=== PATIENT | female | born 1990 | race Caucasian/White ===

== ENCOUNTER → 2016-06-02 | Outpatient (CLI) | payer BC, OTHER ==
--- NOTE | 2016-06-03 07:31 | USB ---
Reason for exam: clinical finding. Indicated problem(s): lump or thickening in the left breast. Physical Findings: Nurse Summary: BB on area of concern (nurse kp). US Breast LT Left breast ultrasound including all four quadrants, the retroareolar region and axilla demonstrates no cystic or solid lesion seen. These results were verbally communicated with the patient and result sheet given to the patient on 06/02/16. ASSESSMENT: Negative, BI-RAD 1 RECOMMENDATION: Clinical management of both breasts. Manage patient on a clinical basis.
== END | disposition home or self-care (01) ==
LOC: RADUSWWP 09:03
PROVIDERS: ATTEND Obstetrics & Gynecology
DX: N63 Unspecified lump in breast (principal)

== ENCOUNTER 2016-07-30 19:04 | Emergency (ER) | payer BC, OTHER ==
[2016-07-30 19:54] VITALS: BP 149/84; PULSE 85; RESP 18; TEMP 97.8
--- NOTE | 2016-07-30 20:22 | ED ---
ENT HPI - General Chief complaint: Dental/Oral Stated complaint: tooth pain Time Seen by Provider: 07/30/16 19:49 Source: patient, RN notes reviewed Mode of arrival: ambulatory Limitations: no limitations - History of Present Illness Initial comments: Patient is 26-year-old female she complaint of dental pain after a dental extraction earlier today. Patient reports that her she saw the dental clinic and they removed tooth #5. The states that it took multiple attempts to remove the tooth and had abraded tooth in half. Patient reports that she's had no dental pain such as this before. She is currently taking amoxicillin for an ear infection. Patient denies any fever or chills or unable to open and close the jaw. She states that they prescribed her Motrin for pain however it is not helping at this time. She states that she does have some mild bleeding from where they pulled the tooth earlier today.Patient denies any recent fever, chills, shortness of breath, chest pain, back pain, abdominal pain, nausea vomiting, numbness or tingling, dysuria or hematuria, constipation or diarrhea, headaches or visual changes, or any other current symptoms - Related Data Home Medications Medication Instructions Recorded Confirmed Amoxicillin 500 mg PO Q8H 07/30/16 07/30/16 Ibuprofen [Motrin] 600 mg PO Q6HR PRN 07/30/16 07/30/16 Previous Rx's Medication Instructions Recorded Acetaminophen-Codeine 300-30mg 1 tab PO Q4H PRN #15 tablet 07/30/16 [Tylenol #3] Allergies Allergy/AdvReac Type Severity Reaction Status Date / Time No Known Allergies Allergy Verified 10/23/14 08:09 Review of Systems ROS Statement: Those systems with pertinent positive or pertinent negative responses have been documented in the HPI. ROS Other: All systems not noted in ROS Statement are negative. Past Medical History Past Medical History: No Reported History History of Any Multi-Drug Resistant Organisms: None Reported Past Surgical History: Section Additional Past Surgical History / Comment(s): PLASTIC SURGERY FOR DOG BITE AGE 3; WISDOM TEETH REMOVED AGE 21 Past Anesthesia/Blood Transfusion Reactions: No Reported Reaction Past Psychological History: Anxiety Smoking Status: Light tobacco smoker Past Alcohol Use History: Rare Past Drug Use History: Cocaine, Marijuana Additional Drug Use History / Comment(s): LAST MARIJUANA 6 MOS AGO; COCAINE 4 YEARS AGO General Exam - General Exam Comments Initial Comments: Pleasant 26-year-old female. No acute distress. Limitations: no limitations General appearance: alert, in no apparent distress Head exam: Present: atraumatic, normocephalic, normal inspection Eye exam: Present: normal appearance, PERRL, EOMI. Absent: scleral icterus, conjunctival injection, periorbital swelling ENT exam: Present: normal exam, mucous membranes moist. Absent: normal oropharynx (Evidence of dental extraction of tooth #5. No evidence of erythema or dental abscess.) Neck exam: Present: normal inspection. Absent: tenderness, meningismus, lymphadenopathy Respiratory exam: Present: normal lung sounds bilaterally. Absent: respiratory distress, wheezes, rales, rhonchi, stridor Cardiovascular Exam: Present: regular rate, normal rhythm, normal heart sounds. Absent: systolic murmur, diastolic murmur, rubs, gallop, clicks GI/Abdominal exam: Present: soft, normal bowel sounds. Absent: distended, tenderness, guarding, rebound, rigid Extremities exam: Present: normal inspection, full ROM, normal capillary refill. Absent: tenderness, pedal edema, joint swelling, calf tenderness Back exam: Present: normal inspection Neurological exam: Present: alert, oriented X3, CN II-XII intact Psychiatric exam: Present: normal affect, normal mood Skin exam: Present: warm, dry, intact, normal color. Absent: rash Course Vital Signs 07/30/16 19:49 Temperature 97.8 F Pulse Rate 85 Respiratory 18 Rate Blood Pressure 149/84 O2 Sat by Pulse 98 Oximetry Medical Decision Making - Medical Decision Making Patient is a 26-year-old noel female presents emergency room with increased pain after dental extraction of tooth #5 earlier today. She reports that she was discharged with Motrin however it isn't helping with the pain. She currently has a gauze pad in her mouth. Patient has been advised to apply topical Orajel over the area with her finger. I also discussed that she needs to follow-up with the dental clinic and seems to get worse over the next 2 or 3 days. I will write the patient for Tylenol 3 and give her a starter pack for the pain. Patient understands the treatment plan will comply. Return parameters were discussed. Disposition Clinical Impression: Pain, dental Disposition: HOME SELF-CARE Condition: Good Instructions: Toothache (ED) Additional Instructions: Patient advised to soak teabags in warm water and place over the area. Patient also should apply Orajel to the cotton swab and to bite on the area. Finish entire antibiotic prescription. Take pain medication as prescribed. Follow-up with the dental clinic or return the emergency Department if any worsening signs or symptoms occur. Prescriptions: Acetaminophen-Codeine 300-30mg [Tylenol #3] 1 tab PO Q4H PRN #15 tablet PRN Reason: Pain Referrals: Nicole Whelan MD [Primary Care Provider] - 1-2 days Time of Disposition: 20:19
[2016-07-30] MEDS ORDERED: ACET/COD 300 MG/30 MG STARTER PACK 6 TAB BTL PO STA (20:23)
== END 2016-07-30 20:32 | disposition home or self-care (01) ==
LOC: EC 19:04
DX: K08.89 Other specified disorders of teeth and supporting structures (principal); F17.200 Nicotine dependence, unspecified, uncomplicated
CPT/HCPCS: 99282

== ENCOUNTER 2016-08-15 03:00 | Emergency (ER) | payer BC, OTHER ==
[2016-08-15 03:11] VITALS: RESP 18
[2016-08-15] MEDS ORDERED: KETOROLAC 30 MG/ML 1 ML VIAL IVP STA (03:26)
[2016-08-15] MEDS ORDERED: SODIUM CHLORIDE 0.9% 500 ML IV STA (03:26)
[2016-08-15] MEDS ORDERED: ONDANSETRON 4 MG/2 ML VIAL IVP STA (03:26)
[2016-08-15 03:34] LABS: Basophils # (A) 0.1 k/uL (0-0.2); Basophils % (A) 1 %; CH 30.8; CHCM 34.7; Eosinophils # (A) 0.4 k/uL (0-0.7); Eosinophils % (A) 2 %; HCT 43.1 % (34.0-46.0); HDW 2.63; HGB 14.3 gm/dL (11.4-16.0); Luc # (Auto) 0.33; Luc % (Auto) 2; Lymphocytes # (A) 4.7 k/uL (1.0-4.8); Lymphocytes % (A) 26 %; MCH 29.7 pg (25.0-35.0); MCHC 33.3 g/dL (31.0-37.0); Mean Platelet Volume 6.4; Monocytes % (A) 5 %; Neutrophils # (A) 11.8 k/uL (1.3-7.7); Neutrophils % (A) 65 %; RBC 4.84 m/uL (3.80-5.40); RDW 12.8 % (11.5-15.5); WBC 18.2 k/uL (3.8-10.6); WBC (Perox) 18.04
[2016-08-15 03:39] LABS: Appearance,Urine Clear (Clear); Bilirubin,Urine Negative (Negative); Glucose,Urine (UA) Negative (Negative); Ketones,Urine Negative (Negative); Leukocyte Esterase,Urine Negative (Negative); Mucus,Urine Rare /hpf; Nitrite,Urine Negative (Negative); PH, Urine 6.5 (5.0-8.0); Particle Count 4291; Protein,Urine Negative (Negative); RBC,Urine 5 /hpf (0-5); Specific Gravity,Urine 1.018 (1.001-1.035); Squamous Epithelial Cell,Urine 2 /hpf (0-4); UA Billing (MACRO vs. MICRO) MICRO; Urobilinogen,Urine <2.0 mg/dL (<2.0); WBC,Urine <1 /hpf (0-5)
[2016-08-15 03:42] LABS: ALT 27 U/L (9-52); AST 21 U/L (14-36); Alkaline Phosphatase 33 U/L (38-126); Amylase 55 U/L (30-110); Anion Gap 11 mmol/L; Blood Urea Nitrogen 13 mg/dL (7-17); Calcium 10.1 mg/dL (8.4-10.2); Carbon Dioxide 27 mmol/L (22-30); Chloride 101 mmol/L (98-107); Glucose 107 mg/dL (74-99); Non-African American GFR(MDRD) >60 (>60 ml/min/1.73 sqM); Potassium 4.2 mmol/L (3.5-5.1); Sodium 139 mmol/L (137-145); Total Bilirubin 0.5 mg/dL (0.2-1.3); Total Protein 7.5 g/dL (6.3-8.2)
--- NOTE | 2016-08-15 04:23 | ED ---
Abdominal Pain HPI - General Chief Complaint: Abdominal Pain Stated Complaint: abd,chest pain Time Seen by Provider: 08/15/16 03:15 Source: patient Mode of arrival: ambulatory Limitations: no limitations - History of Present Illness Initial Comments: This patient is a 26-year-old woman who presents with epigastric pain that does radiate to her back that started between 9 and 10 PM, while she was attempting to go to bed. The patient had eaten about an hour to before. The pain is constant, aching or cramping, severe intensity. She states that its a bit worse if she lies back and slightly better if she sits up. She did have an episode of nausea and vomiting. There was no blood or coffee-ground emesis. Patient denies any change in bowel movements. She has not noted any change in urination. No change in menses or vaginal discharge. MD Complaint: abdominal pain Onset/Timin -: hour(s) Location: suprapubic Radiation: back Severity: severe Quality: aching, sharp Consistency: constant Improves With: nothing Worsens With: nothing Associated Symptoms: nausea, vomiting - Related Data Home Medications Medication Instructions Recorded Confirmed Amoxicillin 500 mg PO Q8H 07/30/16 07/30/16 Ibuprofen [Motrin] 600 mg PO Q6HR PRN 07/30/16 07/30/16 Previous Rx's Medication Instructions Recorded Acetaminophen-Codeine 300-30mg 1 tab PO Q4H PRN #15 tablet 07/30/16 [Tylenol #3] Famotidine [Pepcid] 20 mg PO DAILY #14 tablet 08/15/16 Allergies Allergy/AdvReac Type Severity Reaction Status Date / Time No Known Allergies Allergy Verified 08/15/16 07:28 Review of Systems ROS Statement: Those systems with pertinent positive or pertinent negative responses have been documented in the HPI. ROS Other: All systems not noted in ROS Statement are negative. Constitutional: Denies: fever, chills Respiratory: Denies: cough, dyspnea Cardiovascular: Denies: chest pain, edema, syncope Gastrointestinal: Reports: abdominal pain, nausea, vomiting. Denies: diarrhea, melena, hematochezia Genitourinary: Denies: dysuria, discharge Musculoskeletal: Denies: back pain Skin: Denies: lesions Neurological: Denies: headache Past Medical History Past Medical History: No Reported History History of Any Multi-Drug Resistant Organisms: None Reported Past Surgical History: Section Additional Past Surgical History / Comment(s): PLASTIC SURGERY FOR DOG BITE AGE 3; WISDOM TEETH REMOVED AGE 21 Past Anesthesia/Blood Transfusion Reactions: No Reported Reaction Past Psychological History: Anxiety Smoking Status: Former smoker Past Alcohol Use History: None Reported, Rare Past Drug Use History: None Reported, Cocaine, Marijuana Additional Drug Use History / Comment(s): LAST MARIJUANA 6 MOS AGO; COCAINE 4 YEARS AGO General Exam Limitations: no limitations General appearance: alert, in no apparent distress Head exam: Present: atraumatic Eye exam: Present: normal appearance. Absent: scleral icterus, conjunctival injection ENT exam: Present: normal oropharynx Neck exam: Present: normal inspection, full ROM Respiratory exam: Present: normal lung sounds bilaterally. Absent: respiratory distress, wheezes, rales, rhonchi, stridor Cardiovascular Exam: Present: regular rate, normal rhythm, normal heart sounds. Absent: systolic murmur, diastolic murmur, rubs, gallop GI/Abdominal exam: Present: soft, tenderness, normal bowel sounds. Absent: distended, guarding, rebound, rigid, mass, bruit, pulsatile mass Extremities exam: Present: normal inspection, normal capillary refill. Absent: pedal edema, calf tenderness Back exam: Present: normal inspection. Absent: CVA tenderness (R), CVA tenderness (L) Neurological exam: Present: alert Skin exam: Present: warm, dry, intact, normal color. Absent: rash Course Vital Signs 08/15/16 08/15/16 03:06 04:41 Temperature 97.1 F L 97.7 F Pulse Rate 82 78 Respiratory 18 18 Rate Blood Pressure 140/93 133/75 O2 Sat by Pulse 100 97 Oximetry Medical Decision Making - Lab Data Result diagrams: 08/15/16 03:20 08/15/16 03:20 Lab Results 08/15/16 08/15/16 08/15/16 Range/Units 03:20 03:20 03:20 WBC 18.2 H (3.8-10.6) k/uL RBC 4.84 (3.80-5.40) m/uL Hgb 14.3 (11.4-16.0) gm/dL Hct 43.1 (34.0-46.0) % MCV 89.0 (80.0-100.0) fL MCH 29.7 (25.0-35.0) pg MCHC 33.3 (31.0-37.0) g/dL RDW 12.8 (11.5-15.5) % Plt Count 386 (150-450) k/uL Neutrophils % 65 % Lymphocytes % 26 % Monocytes % 5 % Eosinophils % 2 % Basophils % 1 % Neutrophils # 11.8 H (1.3-7.7) k/uL Lymphocytes # 4.7 (1.0-4.8) k/uL Monocytes # 1.0 (0-1.0) k/uL Eosinophils # 0.4 (0-0.7) k/uL Basophils # 0.1 (0-0.2) k/uL Sodium 139 (137-145) mmol/L Potassium 4.2 (3.5-5.1) mmol/L Chloride 101 (98-107) mmol/L Carbon Dioxide 27 (22-30) mmol/L Anion Gap 11 mmol/L BUN 13 (7-17) mg/dL Creatinine 0.70 (0.52-1.04) mg/dL Est GFR (MDRD) Af Amer >60 (>60 ml/min/1.73 sqM) Est GFR (MDRD) Non-Af >60 (>60 ml/min/1.73 sqM) Glucose 107 H (74-99) mg/dL Calcium 10.1 (8.4-10.2) mg/dL Total Bilirubin 0.5 (0.2-1.3) mg/dL AST 21 (14-36) U/L ALT 27 (9-52) U/L Alkaline Phosphatase 33 L (38-126) U/L Total Protein 7.5 (6.3-8.2) g/dL Albumin 4.5 (3.5-5.0) g/dL Amylase 55 (30-110) U/L Lipase 125 (23-300) U/L Urine Color Urine Appearance (Clear) Urine pH (5.0-8.0) Ur Specific [place] (1.001-1.035) Urine Protein (Negative) Urine Glucose (UA) (Negative) Urine Ketones (Negative) Urine Blood (Negative) Urine Nitrite (Negative) Urine Bilirubin (Negative) Urine Urobilinogen (<2.0) mg/dL Ur Leukocyte Esterase (Negative) Urine RBC (0-5) /hpf Urine WBC (0-5) /hpf Ur Squamous Epith Cells (0-4) /hpf Urine Mucus (None) /hpf Urine HCG, Qual Not Detected (Not Detectd) 08/15/16 Range/Units 03:20 WBC (3.8-10.6) k/uL RBC (3.80-5.40) m/uL Hgb (11.4-16.0) gm/dL Hct (34.0-46.0) % MCV (80.0-100.0) fL MCH (25.0-35.0) pg MCHC (31.0-37.0) g/dL RDW (11.5-15.5) % Plt Count (150-450) k/uL Neutrophils % % Lymphocytes % % Monocytes % % Eosinophils % % Basophils % % Neutrophils # (1.3-7.7) k/uL Lymphocytes # (1.0-4.8) k/uL Monocytes # (0-1.0) k/uL Eosinophils # (0-0.7) k/uL Basophils # (0-0.2) k/uL Sodium (137-145) mmol/L Potassium (3.5-5.1) mmol/L Chloride (98-107) mmol/L Carbon Dioxide (22-30) mmol/L Anion Gap mmol/L BUN (7-17) mg/dL Creatinine (0.52-1.04) mg/dL Est GFR (MDRD) Af Amer (>60 ml/min/1.73 sqM) Est GFR (MDRD) Non-Af (>60 ml/min/1.73 sqM) Glucose (74-99) mg/dL Calcium (8.4-10.2) mg/dL Total Bilirubin (0.2-1.3) mg/dL AST (14-36) U/L ALT (9-52) U/L Alkaline Phosphatase (38-126) U/L Total Protein (6.3-8.2) g/dL Albumin (3.5-5.0) g/dL Amylase (30-110) U/L Lipase (23-300) U/L Urine Color Yellow Urine Appearance Clear (Clear) Urine pH 6.5 (5.0-8.0) Ur Specific [place] 1.018 (1.001-1.035) Urine Protein Negative (Negative) Urine Glucose (UA) Negative (Negative) Urine Ketones Negative (Negative) Urine Blood Trace H (Negative) Urine Nitrite Negative (Negative) Urine Bilirubin Negative (Negative) Urine Urobilinogen <2.0 (<2.0) mg/dL Ur Leukocyte Esterase Negative (Negative) Urine RBC 5 (0-5) /hpf Urine WBC <1 (0-5) /hpf Ur Squamous Epith Cells 2 (0-4) /hpf Urine Mucus Rare H (None) /hpf Urine HCG, Qual (Not Detectd) Disposition Clinical Impression: Abdominal pain, Biliary colic Disposition: HOME SELF-CARE Condition: Good Instructions: Abdominal Pain (ED), Biliary Colic (ED) Prescriptions: Famotidine [Pepcid] 20 mg PO DAILY #14 tablet Referrals: Nicole Whelan MD [Primary Care Provider] - 1-2 days Zenon Cooney MD [STAFF PHYSICIAN] - 1-2 days
[2016-08-15 04:42] VITALS: BP 133/75; PULSE 78; TEMP 97.7
== END 2016-08-15 04:42 | disposition home or self-care (01) ==
LOC: EC 03:00
DX: K80.50 Calculus of bile duct without cholangitis or cholecystitis without obstruction (principal); Z87.891 Personal history of nicotine dependence
CPT/HCPCS: 99283; 96374; 96375; 96361; 36415; 80053; 82150; 83690; 85025; 81001; 81025; J2405; J1885

== ENCOUNTER 2016-08-15 07:23 | Emergency (ER) | payer BC, OTHER ==
[2016-08-15 07:27] VITALS: RESP 18
--- NOTE | 2016-08-15 08:17 | ED ---
Abdominal Pain HPI - General Chief Complaint: Abdominal Pain Stated Complaint: Abd.pain Time Seen by Provider: 08/15/16 07:38 Source: patient Mode of arrival: wheelchair Limitations: no limitations - History of Present Illness Initial Comments: 26-year-old female patient presents to emergency department today for complaints of midepigastric pain that radiates up into her chest and through to her back. Patient states this started around 2100 last evening. She states she did come in for evaluation around 3:30 this morning was given a prescription for an outpatient ultrasound. Patient presented around 7:00 this morning for the ultrasound however ultrasound techs are not present in the hospital on the weekends. Patient returns because the pain is worsening. Patient states the pain makes it difficult for her to breathe. She describes the pain as a sharp crampy constant pain. Patient is nauseated. She had one episode of vomiting prior to her initial visit this morning. She denies any hematemesis. She denies any constipation or diarrhea. She denies any weakness , dizziness, hematuria, dysuria, frequency or urgency of urination. She denies any fever or chills. - Related Data Home Medications Medication Instructions Recorded Confirmed Amoxicillin 500 mg PO Q8H 07/30/16 07/30/16 Ibuprofen [Motrin] 600 mg PO Q6HR PRN 07/30/16 07/30/16 Previous Rx's Medication Instructions Recorded Acetaminophen-Codeine 300-30mg 1 tab PO Q4H PRN #15 tablet 07/30/16 [Tylenol #3] Famotidine [Pepcid] 20 mg PO DAILY #14 tablet 08/15/16 Hydrocodone/Acetaminophen [Kinmundy 1 tab PO Q6HR PRN #20 tab 08/15/16 5-325] Ondansetron Odt [Zofran Odt] 4 mg PO Q8HR PRN #10 tab 08/15/16 Allergies Allergy/AdvReac Type Severity Reaction Status Date / Time No Known Allergies Allergy Verified 08/15/16 07:28 Review of Systems ROS Statement: Those systems with pertinent positive or pertinent negative responses have been documented in the HPI. ROS Other: All systems not noted in ROS Statement are negative. Past Medical History Past Medical History: No Reported History History of Any Multi-Drug Resistant Organisms: None Reported Past Surgical History: Section Additional Past Surgical History / Comment(s): PLASTIC SURGERY FOR DOG BITE AGE 3; WISDOM TEETH REMOVED AGE 21 Past Anesthesia/Blood Transfusion Reactions: No Reported Reaction Past Psychological History: Anxiety Smoking Status: Former smoker Past Alcohol Use History: None Reported, Rare Past Drug Use History: None Reported, Cocaine, Marijuana Additional Drug Use History / Comment(s): LAST MARIJUANA 6 MOS AGO; COCAINE 4 YEARS AGO General Exam Limitations: no limitations General appearance: alert, in no apparent distress Head exam: Present: atraumatic, normocephalic, normal inspection Eye exam: Present: normal appearance, PERRL, EOMI. Absent: scleral icterus, conjunctival injection, periorbital swelling ENT exam: Present: normal exam, normal oropharynx, mucous membranes moist Neck exam: Present: normal inspection. Absent: tenderness, meningismus, lymphadenopathy Respiratory exam: Present: normal lung sounds bilaterally. Absent: respiratory distress, wheezes, rales, rhonchi, stridor Cardiovascular Exam: Present: regular rate, normal rhythm, normal heart sounds. Absent: systolic murmur, diastolic murmur, rubs, gallop, clicks GI/Abdominal exam: Present: soft, tenderness (Mid epigastric, right upper quadrant. Positive Vail sign.), normal bowel sounds. Absent: distended, guarding, rebound, rigid Back exam: Present: normal inspection. Absent: CVA tenderness (R), CVA tenderness (L) Neurological exam: Present: alert, oriented X3, CN II-XII intact Psychiatric exam: Present: normal affect, normal mood Skin exam: Present: warm, dry, intact, normal color. Absent: rash Course Vital Signs 08/15/16 07:24 Temperature 97.0 F L Pulse Rate 78 Respiratory 18 Rate Blood Pressure 167/113 O2 Sat by Pulse 99 Oximetry - Reevaluation(s) Reevaluation #1: 08/15/16 09:12 Reevaluated patient. Pain improving after receiving pain medications. Informed patient we will be obtaining a computed tomography scan to further evaluate abdominal pain. Disposition Clinical Impression: Midepigastric pain, Cholelithiases, Enteritis Disposition: HOME SELF-CARE Condition: Stable Instructions: Abdominal Pain (ED), Gallstones (ED) Additional Instructions: Start with clear liquid diet and advance as tolerated. Follow-up with primary care physician in 1 to 2 days for recheck. Return for any new, worsening, or concerning symptoms. Prescriptions: Hydrocodone/Acetaminophen [Kinmundy 5-325] 1 tab PO Q6HR PRN #20 tab PRN Reason: Pain Ondansetron Odt [Zofran Odt] 4 mg PO Q8HR PRN #10 tab PRN Reason: Nausea Referrals: Nicole Whelan MD [Primary Care Provider] - 1-2 days Rufina Lopez MD [STAFF PHYSICIAN] - 1-2 days Time of Disposition: 11:10
[2016-08-15] MEDS ORDERED: ONDANSETRON ODT 4 MG TAB PO STA (08:18)
[2016-08-15] MEDS ORDERED: HYDROmorphone 1 MG/ML 1 ML SYRINGE IM STA (08:18)
[2016-08-15] MEDS ORDERED: RX INFO: IV CONTRAST WAS GIVEN 1 EACH MISC MISCELLANE PRN (09:08)
--- NOTE | 2016-08-15 09:13 | US ---
EXAMINATION TYPE: US abdomen limited DATE OF EXAM: 08/15/2016 8:50 AM COMPARISON: NONE CLINICAL HISTORY: Pain. RUQ pain, NPO EXAM MEASUREMENTS: Liver Length: 17.1 cm Gallbladder Wall: 0.2 cm CBD: 0.4 cm Right Kidney: 11.6 x 5.5 x 5.5 cm Suboptimal visualization due to overlying bowel gas Pancreas: Obscured by bowel gas Liver: upper limits enlargement, no focal masses or lesions seen as visualized Gallbladder: wnl as visualized Evidence for sonographic Vail's sign: neg CBD: wnl Right Kidney: wnl The pancreas is poorly visualized. The liver is upper limits of normal in size. The gallbladder appea rs normal. There is no sonographic Vail's sign. IMPRESSION: NO ACUTE RIGHT UPPER QUADRANT ABNORMALITY.
--- NOTE | 2016-08-15 11:06 | CT ---
EXAMINATION TYPE: CT abdomen pelvis w con DATE OF EXAM: 08/15/2016 10:58 AM REFERENCE: NONE HISTORY: Pain HISTORY: RUQ pain radiating to chest and Rt scapular region REFERENCE: NONE CT DLP: 2986.4 mGy Automated exposure control for dose reduction was used. TECHNIQUE: Helical acquisition through the abdomen and pelvis was obtained following the oral ingesti on of without Oral Contrast and following intravenous administration of 93 mL of Omnipaque 300. The d irena was reformatted in axial, coronal and sagittal projections. FINDINGS: Visualized portions of the lungs are clear. There is no pleural or pericardial fluid. The heart is not enlarged. There is a 1.4 cm calculus within the gallbladder. The liver and spleen are normal. Both adrenal glands are normal. Both kidneys demonstrate function and appear morphologically normal. The pancreas is unremarkable. There is no significant retroperitoneal, iliac or inguinal adenopathy. There is follicular changes in the ovaries. The uterus is unremarkable. The bladder is normal. There is colonic thickening involving the sigmoid colon and part of the descending colon. The appendi x is normal. There is mild prominence of the distal jejunal loops. The more proximal and more distal small bowel a ppears normal. No free fluid and no free air is seen. There is a small pseudocyst on the left femoral neck. No other osseous lesions are seen. IMPRESSION: 1. CHOLELITHIASIS. 2. FINDINGS SUGGESTIVE OF COLITIS. THERE MAY ALSO BE SOME ENTERITIS. 3. 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 PLEASE CORRE LATE CLINICALLY.
[2016-08-15 11:28] VITALS: BP 128/86; PULSE 89; TEMP 97.9
== END 2016-08-15 11:28 | disposition home or self-care (01) ==
LOC: EC 07:23
DX: K52.9 Noninfective gastroenteritis and colitis, unspecified (principal); K80.20 Calculus of gallbladder without cholecystitis without obstruction; Z87.891 Personal history of nicotine dependence
CPT/HCPCS: 99284; 96372; 76705; 74177; J1170; Q9967; 36415; 80053; 81001; 81025; 82150; 83690; 85025; 96361; 96374; 96375; 99283

== ENCOUNTER 2016-09-30 07:31 | Day surgery (SDC) | payer BC, OTHER ==
--- NOTE | 2016-09-09 09:22 | HP ---
DATE OF ADMISSION: 09/30/2016 CHIEF COMPLAINT: Cholecystitis. HISTORY OF PRESENT ILLNESS: Patient is a 26-year-old female who was recently seen in the office complaining of frequent episodes of right upper quadrant pain with radiation to the chest and back. She has some heartburn chronically, but this feels different to her. She was in the ER recently. A CAT scan showed gallstones and some thickening of the colon, possibly on the basis of enteritis. Ultrasound was actually negative for gallstones. Liver enzymes were normal. PAST MEDICAL HISTORY: Denies. Past surgical history is none. MEDICATIONS: control. ALLERGIES: None. PHYSICAL EXAMINATION: GENERAL: Well-developed, well-nourished female in no distress. HEENT: Normocephalic. Sclerae is nonicteric. Chest is clear. HEART: Regular rate and rhythm. ABDOMEN: Soft, nondistended. Mild right upper quadrant tenderness. IMPRESSION: A 26-year-old female with chronic cholecystitis. PLAN: Will proceed with laparoscopic cholecystectomy on 09/30. The risks of the procedure are noted to include but not limited to bleeding, infection, biloma formation, common bile duct injury, retained CBD stone, trocar-related injury and conversion to an open procedure. The patient understands and wishes to proceed.
[2016-09-29 09:55] VITALS: BMI 34.4
[~2016-09-30 07:31] MED LIST: FAMOTIDINE 20 MG/2 ML VIAL IV PRN; HEPARIN SODIUM,PORCINE 5,000 UNIT/ML 1 ML VIAL SQ ONE; LACTATED RINGERS 1,000 ML IV SCH; MIDAZOLAM 2 MG/2 ML VIAL IV PRN; ONDANSETRON 4 MG/2 ML VIAL IVP ONE; SCOPOLAMINE 1.5MG/72HR PATCH TRANSDERM ONE; ceFAZolin 2 GM in SODIUM CHLORIDE 0.9% 100 ML IVPB ONE
[2016-09-30 08:14] LABS: Glucose,Whole Blood 105 mg/dL (75-99)
[2016-09-30] MEDS ORDERED: PROPOFOL 10 MG/ML 20 ML VIAL IV ONE (08:43)
[2016-09-30] MEDS ORDERED: SUCCINYLCHOLINE CHLORIDE 100 MG/5 ML SYR IV ONE (08:43)
[2016-09-30] MEDS ORDERED: GLYCOPYRROLATE 0.2 MG/ML 2 ML VIAL ONE (08:43)
[2016-09-30] MEDS ORDERED: KETAMINE 10 MG/ML 20 ML VIAL ONE (08:43)
[2016-09-30] MEDS ORDERED: NEOSTIGMINE 1 MG/ML 10 ML VIAL ONE (08:43)
[2016-09-30] MEDS ORDERED: METOPROLOL TARTRATE 5 MG/5 ML VIAL IVP ONE (08:43)
[2016-09-30] MEDS ORDERED: ROCURONIUM BROMIDE 10 MG/ML 10 ML VIAL IV ONE (08:43)
[2016-09-30] MEDS ORDERED: LIDOCAINE 1% INJ 10MG/ML (20 ML MDV) ONE (08:43)
[2016-09-30] MEDS ORDERED: BUPIVACAIN-EPI 0.25%-1:200,000 30 ML VIAL SQ ONE ×2 (09:08)
[2016-09-30 10:14] VITALS: TEMP 98
[2016-09-30 10:16] VITALS: RESP 18
[2016-09-30] MEDS ORDERED: HYDROcodone/APAP 5-325MG 1 EACH TAB PO PRN (10:20)
[2016-09-30] MEDS ORDERED: NALOXONE 0.4 MG/ML 1 ML VIAL IV PRN (10:20)
--- NOTE | 2016-09-30 10:24 | P.OP ---
Date of Procedure: 09/30/16 Preoperative Diagnosis: Postoperative Diagnosis: Procedure(s) Performed: PREOPERATIVE DIAGNOSIS: Chronic cholecystitis POSTOPERATIVE DIAGNOSIS: Same PROCEDURE: Laparoscopic cholecystectomy SURGEON: Miguel EBL: Minimal see anesthesia record ANESTHESIA: Gen. COMPLICATIONS: None OPERATIVE PROCEDURE: The patient was brought and placed on the operating room table in the supine position. The patient was placed under general anesthesia at that time. The abdomen was prepped and draped in the usual sterile fashion. A small vertical infraumbilical incision was made. The fascia was grasped with the Argelia forceps. The fascia was retracted anteriorly. The Veress needle was advanced into the peritoneal cavity. The saline drop test was normal. Insufflation took place up to 15 mmHg. A 5 mm optical trocar was advanced and the peritoneal cavity. 2 additional 5 mm trochars were placed in the right upper quadrant under direct visualization. A 10 mm trocar was advanced into the epigastric incision site. The gallbladder was retracted superiorly and laterally. There were extensive adhesions that were dense in nature between the surrounding omentum and the gallbladder. These were able to be lysed gradually using electrocautery and blunt dissection. The peritoneum overlying the infundibulum was bluntly dissected. The patient's cystic duct was visualized. The junction between the cystic duct common and hepatic duct was identified. The cystic duct was then divided after placement of 3 10 mm clips on the patient's side and one on the specimen side. The cystic artery was identified and clipped as well. A small vessel was seen along the gallbladder fossa and clipped as well. The gallbladder was then removed from the liver bed using electrocautery. The gallbladder was then removed from the epigastric trocar site with an Endo Catch bag. The gallbladder fossa was irrigated with saline. There was no evidence of any bleeding or biliary drainage seen. The trochars were then removed. The fascia at the 10 millimeter site was closed using a Wilber Nieves 0 Vicryl stitch. The skin at all 4 sites was closed using a 4-0 Monocryl stitch. At the end of this procedure the sponge and needle counts were correct. DISPOSITION: Stable to the recovery room Implants: Indications for Procedure: Operative Findings: Description of Procedure:
[2016-09-30] MEDS: HYDROmorphone 1 MG/ML 1 ML SYRINGE IVP PRN ×2 (10:28→10:37)
[2016-09-30] MEDS ORDERED: LACTATED RINGERS 1,000 ML IV ONE ×2 (10:58→12:07)
[2016-09-30] MEDS ORDERED: HYDROcodone/APAP 5-325MG 1 EACH TAB PO ONE (12:35)
[2016-09-30 13:39] VITALS: BP 133/84; PULSE 81
== END 2016-09-30 13:56 | disposition home or self-care (01) ==
LOC: OR 07:31
PROVIDERS: ATTEND Surgery
DX: K80.10 Calculus of gallbladder with chronic cholecystitis without obstruction (principal); K66.0 Peritoneal adhesions (postprocedural) (postinfection); F17.200 Nicotine dependence, unspecified, uncomplicated; Z79.3 Long term (current) use of hormonal contraceptives; Z79.1 Long term (current) use of non-steroidal anti-inflammatories (NSAID)
CPT/HCPCS: 81025; 88304; 47562; J1644; J2710; J0690; J2405; J2001; J1170; J0330; J2704

== ENCOUNTER → 2018-03-10 | Outpatient (CLI) | payer OTHER ==
[2018-03-10 10:11] LABS: Basophils # (A) 0.1 k/uL (0-0.2); Basophils % (A) 1 %; Eosinophils # (A) 0.3 k/uL (0-0.7); Eosinophils % (A) 2 %; HCT 41.8 % (34.0-46.0); HGB 13.7 gm/dL (11.4-16.0); Lymphocytes # (A) 2.5 k/uL (1.0-4.8); Lymphocytes % (A) 23 %; MCHC 32.7 g/dL (31.0-37.0); MCV 91.8 fL (80.0-100.0); Mean Platelet Volume 6.6; Monocytes # (A) 0.5 k/uL (0-1.0); Monocytes % (A) 4 %; Neutrophils # (A) 7.7 k/uL (1.3-7.7); Neutrophils % (A) 69 %; Platelet Count 319 k/uL (150-450); RBC 4.55 m/uL (3.80-5.40); RDW 12.9 % (11.5-15.5); WBC 11.2 k/uL (3.8-10.6)
[2018-03-10 16:01] LABS: Albumin 4.5 g/dL (3.80-4.90); Albumin/Globulin Ratio 2.05 (1.20-2.10); Anion Gap 7.6 mmol/L (4.00-12.00); Calcium 9.5 mg/dL (8.7-10.3); Carbon Dioxide 25.4 mmol/L (21.6-31.8); Globulin 2.2 g/dL (2.1-3.7); LDL Cholesterol,Calculated 49.2 mg/dL (0.0-131.0); Potassium 4.7 mmol/L (3.5-5.5); Total Bilirubin 0.7 mg/dL (0.3-1.2); Total Protein 6.7 g/dL (6.2-8.2); VLDL Calculation 34.8 mg/dL (5.00-40.00)
== END | disposition home or self-care (01) ==
LOC: LABWHC1 09:06
DX: Z00.00 Encounter for general adult medical examination without abnormal findings (principal)
CPT/HCPCS: 36415; 80053; 80061; 84443; 85025

== ENCOUNTER → 2019-07-14 | Outpatient (CLI) | payer OTHER ==
[2019-07-14 17:12] LABS: HCT 44.5 % (34.0-46.0); HGB 14.6 gm/dL (11.4-16.0); MCH 30.9 pg (25.0-35.0); MCHC 32.8 g/dL (31.0-37.0); MCV 94.1 fL (80.0-100.0); Mean Platelet Volume 7.1; Platelet Count 367 k/uL (150-450); RBC 4.73 m/uL (3.80-5.40); RDW 12.4 % (11.5-15.5); WBC 12.7 k/uL (3.8-10.6)
== END | disposition home or self-care (01) ==
LOC: LABPAT 16:42
PROVIDERS: ATTEND Orthopaedic Surgery
DX: Z01.812 Encounter for preprocedural laboratory examination (principal); L03.011 Cellulitis of right finger
CPT/HCPCS: 81025; 85027

== ENCOUNTER 2019-07-15 05:00 | Day surgery (SDC) | payer OTHER ==
[2019-07-14 16:53] VITALS: BMI 33.0
--- NOTE | 2019-07-14 17:12 | HP ---
HISTORY AND PHYSICAL CHIEF COMPLAINT: Right small finger pain. 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 She notes progressive swelling, redness and drainage along with warmth. She was seen by a primary care physician and started on Keflex yesterday. She denies current fevers or chills. PAST MEDICAL HISTORY: Negative. CURRENT MEDICATIONS: Keflex. ALLERGIES: SHE DENIES DRUG ALLERGIES. FAMILY HISTORY: Significant for Parkinson's disease. SOCIAL HISTORY: Significant for one pack per day tobacco use. REVIEW OF SYSTEMS: Sixteen-point review of systems otherwise reviewed and is noncontributory. PHYSICAL EXAMINATION: On examination, the patient is approximately 5 feet 10 inches, 230 pounds of endomorphic habitus. HEENT exam is nonfocal. Neck is supple. She is nontender about the right shoulder, elbow and wrist. On examination of her right hand, fifth digit, she has moderate swelling of the distal tip. There is erythema and warmth. She has limited motion. She is nontender over the volar flexor sheath. Light touch is distally intact. The nail plate is intact. No gross purulence is present. X-rays of the right small finger obtained in the office show soft tissue swelling of the distal tip. IMPRESSION: Right fifth digit felon. RECOMMENDATIONS: I talked to the patient at length regarding her condition along with treatment options. At this point we will plan to proceed with incision and drainage of her infection. We will have her continue on the oral Keflex until final cultures help direct antibiotic treatment. We will potentially perform that as an outpatient procedure utilizing a digital block and IV sedation. MMODL / IJN: [id number] /
[2019-07-15 05:45] LABS: Appearance,Urine Clear (Clear); Bilirubin,Urine Negative (Negative); Blood,Urine Negative (Negative); Color,Urine Yellow; Glucose,Urine (UA) Negative (Negative); Ketones,Urine Negative (Negative); Leukocyte Esterase,Urine Negative (Negative); Nitrite,Urine Negative (Negative); Protein,Urine Trace (Negative); Specific Gravity,Urine 1.027 (1.001-1.035)
[2019-07-15 07:36] VITALS: RESP 16
[2019-07-15] MEDS ORDERED: LACTATED RINGERS 1,000 ML IV ONE (07:50)
[2019-07-15] MEDS ORDERED: PROPOFOL 10 MG/ML 20 ML VIAL IV ONE (08:25)
[2019-07-15] MEDS ORDERED: MIDAZOLAM 2 MG/2 ML VIAL ONE (08:25)
[2019-07-15] MEDS ORDERED: KETAMINE 10 MG/ML 20 ML VIAL ONE (08:25)
[2019-07-15] MEDS ORDERED: ceFAZolin 1,000 MG in SODIUM CHLORIDE 0.9% 1,000 ML IRRIGATION ONE (08:31)
[2019-07-15] MEDS ORDERED: BUPIVACAINE (PF) 0.25% 30 ML VIAL INTRAARTIC ONE (08:31)
[2019-07-15] MEDS ORDERED: SODIUM CHLORIDE 0.9% 100 ML with ceFAZolin 2,000 MG IV ONE ×2 (08:38)
--- NOTE | 2019-07-15 08:59 | P.OP ---
Date of Procedure: 07/15/19 Preoperative Diagnosis: Right fifth digit felon/abscess Postoperative Diagnosis: Same Procedure(s) Performed: Incision and drainage with irrigation and debridement right fifth digit felon/abscess Right fifth digit digital block utilizing 10 mL of quarter percent plain Marcaine Anesthesia: MAC, local Surgeon: Salvatore Sandra Estimated Blood Loss (ml): 3 Pathology: other (Cultures) Condition: stable Disposition: PACU Indications for Procedure: The patient's a 29-year-old female who presents with 1 week history of progressive swelling/redness/pain of the right fifth digit. Upon evaluation she was noted have a felon/abscess. A discussion of the risks and benefits of operative intervention was made with patient. She opted to proceed. Operative procedure include persistence of infection need for subsequent procedures was discussed. Informed consent was obtained. Operative Findings: as below Description of Procedure: The patient was brought to the operating room, and after induction of IV sedation a digital block was placed in the right hand/fifth digit utilizing 10 mL of quarter percent plain Marcaine. The right upper extremity was then prepped and draped in normal fashion. A Newnan drain was used as a tourniquet. A 1 cm dorsal lateral incision was made along the ulnar aspect of the fifth digit distal phalanx. Skin was incised sharply. Subcu change tissues were divided bluntly. The volar septae were bluntly dissected. Deep cultures were obtained. Copious irrigation was performed utilizing normal saline. I did remove the nail plate. The skin was loosely reapproximated with simple 4-0 nylon suture. A sterile dressing was applied. The tourniquet was removed with less than 10 minutes total tourniquet time. The patient was awoken from sedation and transferred to recovery room in good condition. Blood loss estimated at 3 mL. No complications were incurred. Sponge and needle counts were correct at the end of the case.
[2019-07-15 09:57] VITALS: PULSE 82; TEMP 98.1
[2019-07-15 10:32] VITALS: BP 148/90
== END 2019-07-15 10:31 | disposition home or self-care (01) ==
LOC: OR 05:00 → 4SSUR 05:05 → OR 10:31
PROVIDERS: ATTEND Orthopaedic Surgery
DX: L03.011 Cellulitis of right finger (principal); Z82.0 Family history of epilepsy and other diseases of the nervous system; F17.210 Nicotine dependence, cigarettes, uncomplicated; F41.9 Anxiety disorder, unspecified; K21.9 Gastro-esophageal reflux disease without esophagitis; Z79.3 Long term (current) use of hormonal contraceptives
CPT/HCPCS: 81003; 81025; 87070; 87205; 87075; 26011; J2250; J0690; J2704

== ENCOUNTER → 2023-01-25 | Outpatient (CLI) | payer OTHER ==
--- NOTE | 2023-01-26 11:46 | US ---
EXAMINATION TYPE: US pelvic complete DATE OF EXAM: 01/25/2023 COMPARISON: NONE CLINICAL INDICATION: Female, 32 years old with history of N93.8 DUB TECHNIQUE: Transabdominal sonographic images of the pelvis were acquired. Date of LMP: irregular EXAM MEASUREMENTS: Uterus: 8.4 x 5.2 x 3.7 cm Endometrial Stripe: 0.6 cm Right Ovary: 3.6 x 3.5 x 2.7 cm Left Ovary: not seen 1. Uterus: Anteverted and otherwise wnl 2. Endometrium: wnl 3. Right Ovary: wnl 4. Left Ovary: Obscured by overlying bowel gas 5. Bilateral Adnexa: wnl 6. Posterior cul-de-sac: wnl IMPRESSION: Unable to visualize the left ovary. Otherwise, unremarkable sonographic examination of the pelvis.
== END | disposition home or self-care (01) ==
LOC: RADUSWWP 16:05
PROVIDERS: ATTEND Obstetrics & Gynecology
DX: N93.8 Other specified abnormal uterine and vaginal bleeding (principal)
CPT/HCPCS: 76856

== ENCOUNTER 2024-04-19 20:06 | Emergency (ER) | payer OTHER ==
[2024-04-19] MEDS: ACETAMINOPHEN TAB 500 MG TAB PO STA (20:48)
--- NOTE | 2024-04-19 20:55 | ED ---
Fever HPI - General Chief Complaint: Fever Stated Complaint: fever, post-op Time Seen by Provider: 04/19/24 20:30 Source: patient, RN notes reviewed Mode of arrival: ambulatory Limitations: no limitations - History of Present Illness Initial Comments: This is a 34-year-old female who presents to the emergency department for a fever. States that she woke up yesterday with a fever and chills. She then developed a headache and increasing back pain. She went to urgent care that day and tested negative for COVID and influenza. States that today the symptoms persisted and she saw her primary care provider. She had urinalysis testing done that was negative and an ultrasound was ordered to evaluate for any retained products of conception. She is 3 weeks from a and . Denies any abdominal pain. States that her incision is healing well. She does have some residual spotting but denies any foul smelling discharge. States that she delivered at [facility]. She did have gestational diabetes treated with insulin. States that she went to the hospital a few times toward the end of her for symptoms of preeclampsia, but was never formally diagnosed. She was GBS negative. She denies any respiratory symptoms such as coughing or congestion. Additionally, the back pain has been ongoing since she had the , but seems to be getting worse. The back pain is not worse on any particular side and seems to be coming in waves. Complaint: fever - Related Data Home Medications Medication Instructions Recorded Confirmed Acetaminophen [Tylenol] 2 tab PO PRN 03/25/24 Vit No.179/Iron/Folic 1 tab PO DAILY 03/25/24 03/25/24 [ Tablet] Previous Rx's Medication Instructions Recorded Ibuprofen [Motrin] 800 mg PO Q8H PRN #30 tab 04/20/24 cefuroxime axetiL [Ceftin] 500 mg PO BID 10 Days #20 tab 04/20/24 metroNIDAZOLE [Flagyl] 500 mg PO BID 10 Days #20 tab 04/20/24 Allergies Allergy/AdvReac Type Severity Reaction Status Date / Time No Known Allergies Allergy Verified 03/20/22 11:02 Review of Systems ROS Statement: Those systems with pertinent positive or pertinent negative responses have been documented in the HPI. ROS Other: All systems not noted in ROS Statement are negative. Past Medical History Past Medical History: GERD/Reflux Additional Past Medical History / Comment(s): "gets steroid injection to head for hairloss" History of Any Multi-Drug Resistant Organisms: None Reported Past Surgical History: Section, Cholecystectomy Additional Past Surgical History / Comment(s): PLASTIC SURGERY FOR DOG BITE AGE 3; WISDOM TEETH REMOVED AGE 21, RT LITTLE FINGERNAIL REMOVED R/T INFECTION Past Anesthesia/Blood Transfusion Reactions: No Reported Reaction, Family History of Problems w/ Anesthesia Additional Past Anesthesia/Blood Transfusion Reaction / Comment(s): No hx blood transfusion Past Psychological History: Anxiety Smoking Status: Current every day smoker - Past Family History Mother Family Medical History: No Reported History Father Family Medical History: Neurologic Disorder Additional Family Medical History / Comment(s): Parkinson's General Exam Limitations: no limitations General appearance: alert, in no apparent distress Head exam: Present: atraumatic, normocephalic, normal inspection Eye exam: Present: normal appearance, PERRL, EOMI. Absent: scleral icterus, conjunctival injection, periorbital swelling Respiratory exam: Present: normal lung sounds bilaterally. Absent: respiratory distress, wheezes, rales, rhonchi, stridor Cardiovascular Exam: Present: regular rate, normal rhythm, normal heart sounds. Absent: systolic murmur, diastolic murmur, rubs, gallop, clicks GI/Abdominal exam: Present: soft, normal bowel sounds. Absent: distended, tenderness, guarding, rebound, rigid Back exam: Absent: CVA tenderness (R), CVA tenderness (L) Neurological exam: Present: alert, oriented X3, CN II-XII intact Psychiatric exam: Present: normal affect, normal mood Skin exam: Present: warm, dry, intact, normal color. Absent: rash Course Vital Signs 04/19/24 04/19/24 04/19/24 20:21 21:39 22:37 Temperature 100.4 F H 100.3 F H 98.4 F Pulse Rate 118 H 91 Respiratory 18 17 Rate Blood Pressure 124/72 116/62 O2 Sat by Pulse 96 95 Oximetry 04/20/24 04/20/24 00:45 02:03 Temperature 97.7 F Pulse Rate 77 Respiratory 16 Rate Blood Pressure 121/73 O2 Sat by Pulse 98 Oximetry Medical Decision Making - Medical Decision Making This is a 34 year old female who presents to the emergency department for fevers. Was pt. sent in by a medical professional or institution? @ -No Did you speak to anyone other than the patient for history? @ -No Did you review nursing and triage notes? @ -Yes, and I agree, it is accurate with regards to the patient's symptoms. Were old charts reviewed? @ -No Differential Diagnosis? @ -Differential Fever: Pneumonia, viral URI, endocarditis, myocarditis, pericarditis, otitis, si nusitis, peritonsillar Abscess, retropharyngeal Abscess, epiglottitis, peritonitis, appendicitis, Vidhya cystitis, diverticulitis, hepatitis, colitis, UTI, PID, TOA, pyelonephritis, prostatitis, epididymitis, meningitis, encephalitis, pulmonary embolism, CVA, thyroid storm, pancreatitis, adrenal dorcas is, cavernous sinus thrombosis, this is not meant to be an all-inclusive list. EKG interpreted by me (3pts min.)? @ -Not obtained X-rays interpreted by me (1pt min.)? @ -Chest x-ray obtained, my interpretation identifies no localized consolidations or infiltrates. CT interpreted by me (1pt min.)? @ -Not obtained U/S interpreted by me (1pt. min.)? @ -Transvaginal ultrasound obtained. My interpretation identifies no evidence of ovarian torsion. What testing was considered but not performed? (CT, X-rays, U/S, labs)? Why? @ -None What meds were considered but not given? Why? @ -None Did you discuss the management of the patient with other professionals? @ -No Did you reconcile home meds? @ -No Was smoking cessation discussed for >3mins.? @ -No Was critical care preformed (if so, how long)? @ -No Were there social determinants of health that impacted care today? How? (Homelessness, low income, unemployed, alcoholism, drug addiction, transportation, low edu. Level, literacy, decrease access to med. care, senior living, rehab)? @ -No Was there de-escalation of care discussed even if they declined? (Discuss DNR or withdrawal of care, Hospice)? @ -No What co-morbidities impacted this encounter? (DM, HTN, Smoking, COPD, CAD, Cancer, CVA, Hep., AIDS, mental health diagnosis, sleep apnea, morbid obesity)? @ -None Was patient admitted / discharged? @ -Discharged. Lab work demonstrates leukocytosis with a white blood cell count of 16.6. She has mild hypokalemia with a potassium of 3.4. CRP elevated at 26.7. COVID, influenza, RSV, and rapid strep testing negative. Urinalysis does have elevated white blood cells and bacteria present. Urine sent for culture. Chest x-ray reveals no acute process. Transvaginal ultrasound demonstrates a complex fluid collection in the lower uterine segment and cervix most consistent with a thrombus. There is no abnormal Doppler blood flow seen. The appearance of the fluid is not consistent with retained products of conception. This would also be less likely in the case of a . Aside from the fever, she is not necessarily experiencing symptoms suggestive of endometritis. She was not experiencing any abdominal pain or foul-smelling discharge. In discussing disposition with the patient, she is comfortable with starting with outpatient management first. Will treat patient as potential urinary tract infection based on the urinalysis. 2 g of Rocephin administered in the emergency department. She was also given Flagyl to cover for anaerobes in the event there is an as sociated pelvic infection. Prescription for cefuroxime and Flagyl provided for management of UTI and possible pelvic infection with fever. Ibuprofen prescribed for further management of pain and fever. She was given very strict return parameters and advised to call her MANAGER ASSURANCE first thing tomorrow morning for further instruction as well. Patient discharged home in stable condition. Case discussed with ED attending Dr. Marshall. Return precautions reviewed in depth, the patient is instructed to return to the emergency department with any new, worsening, or concerning symptoms. Patient verbalized understanding. Undiagnosed new problem with uncertain prognosis? @ -None Drug Therapy requiring intensive monitoring for toxicity (Heparin, Nitro, Insulin, Cardizem)? @ -None Were any procedures done? @ -None Diagnosis/symptom? @ - fever, UTI Acute, or Chronic, or Acute on Chronic? @ -Acute Uncomplicated (without systemic symptoms) or Complicated (systemic symptoms)? @ -Uncomplicated Side effects of treatment? @ -None Exacerbation, Progression, or Severe Exacerbation] @ -Not applicable Poses a threat to life or bodily function? @ -No - Lab Data Result diagrams: 04/19/24 21:18 04/19/24 21:18 Lab Results 04/19/24 04/19/24 04/19/24 Range/Units 21:18 21:18 21:18 WBC 16.6 H (3.8-10.6) k/uL RBC 4.13 (3.80-5.40) m/uL Hgb 12.2 (11.4-16.0) gm/dL Hct 36.2 (34.0-46.0) % MCV 87.7 (80.0-100.0) fL MCH 29.5 (25.0-35.0) pg MCHC 33.6 (31.0-37.0) g/dL RDW 13.3 (11.5-15.5) % Plt Count 275 (150-450) k/uL MPV 7.2 Neutrophils % 78 % Lymphocytes % 14 % Monocytes % 5 % Eosinophils % 1 % Basophils % 0 % Neutrophils # 13.0 H (1.3-7.7) k/uL Lymphocytes # 2.3 (1.0-4.8) k/uL Monocytes # 0.8 (0-1.0) k/uL Eosinophils # 0.2 (0-0.7) k/uL Basophils # 0.0 (0-0.2) k/uL PT (10.0-12.5) sec INR (<1.2) APTT (22.0-30.0) sec Sodium 135 L (137-145) mmol/L Potassium 3.4 L (3.5-5.1) mmol/L Chloride 107 (98-107) mmol/L Carbon Dioxide 23 (22-30) mmol/L Anion Gap 5 mmol/L BUN 10 (7-17) mg/dL Creatinine 0.57 (0.52-1.04) mg/dL Est GFR (CKD-EPI)AfAm >90 (>60 ml/min/1.73 sqM) Est GFR (CKD-EPI)NonAf >90 (>60 ml/min/1.73 sqM) Glucose 109 H (74-99) mg/dL Plasma Lactic Acid Abilio 0.8 (0.7-2.0) mmol/L Calcium 8.8 (8.4-10.2) mg/dL Total Bilirubin 0.7 (0.2-1.3) mg/dL AST 28 (14-36) U/L ALT 31 (4-34) U/L Alkaline Phosphatase 49 (38-126) U/L C-Reactive Protein 26.7 H (<1.0) mg/dL Total Protein 6.8 (6.3-8.2) g/dL Albumin 3.9 (3.5-5.0) g/dL HCG, Quant mIU/mL Urine Color Urine Appearance (Clear) Urine pH (5.0-8.0) Ur Specific [place] (1.001-1.035) Urine Protein (Negative) Urine Glucose (UA) (Negative) Urine Ketones (Negative) Urine Blood (Negative) Urine Nitrite (Negative) Urine Bilirubin (Negative) Urine Urobilinogen (<2.0) mg/dL Ur Leukocyte Esterase (Negative) Urine RBC (0-5) /hpf Urine WBC (0-5) /hpf Ur Squamous Epith Cells (0-4) /hpf Urine Bacteria (None) /hpf Urine Mucus (None) /hpf Influenza Type A (PCR) (Not Detectd) Influenza Type B (PCR) (Not Detectd) RSV (PCR) (Not Detectd) SARS-CoV-2 (PCR) (Not Detectd) Group A Strep (PCR) (Not Detectd) 04/19/24 04/19/24 04/19/24 Range/Units 21:18 22:27 22:46 WBC (3.8-10.6) k/uL RBC (3.80-5.40) m/uL Hgb (11.4-16.0) gm/dL Hct (34.0-46.0) % MCV (80.0-100.0) fL MCH (25.0-35.0) pg MCHC (31.0-37.0) g/dL RDW (11.5-15.5) % Plt Count (150-450) k/uL MPV Neutrophils % % Lymphocytes % % Monocytes % % Eosinophils % % Basophils % % Neutrophils # (1.3-7.7) k/uL Lymphocytes # (1.0-4.8) k/uL Monocytes # (0-1.0) k/uL Eosinophils # (0-0.7) k/uL Basophils # (0-0.2) k/uL PT (10.0-12.5) sec INR (<1.2) APTT (22.0-30.0) sec Sodium (137-145) mmol/L Potassium (3.5-5.1) mmol/L Chloride (98-107) mmol/L Carbon Dioxide (22-30) mmol/L Anion Gap mmol/L BUN (7-17) mg/dL Creatinine (0.52-1.04) mg/dL Est GFR (CKD-EPI)AfAm (>60 ml/min/1.73 sqM) Est GFR (CKD-EPI)NonAf (>60 ml/min/1.73 sqM) Glucose (74-99) mg/dL Plasma Lactic Acid Abilio (0.7-2.0) mmol/L Calcium (8.4-10.2) mg/dL Total Bilirubin (0.2-1.3) mg/dL AST (14-36) U/L ALT (4-34) U/L Alkaline Phosphatase (38-126) U/L C-Reactive Protein (<1.0) mg/dL Total Protein (6.3-8.2) g/dL Albumin (3.5-5.0) g/dL HCG, Quant 3.8 mIU/mL Urine Color Yellow Urine Appearance Clear (Clear) Urine pH 6.0 (5.0-8.0) Ur Specific [place] 1.023 (1.001-1.035) Urine Protein 1+ H (Negative) Urine Glucose (UA) Negative (Negative) Urine Ketones Negative (Negative) Urine Blood Trace H (Negative) Urine Nitrite Negative (Negative) Urine Bilirubin Negative (Negative) Urine Urobilinogen <2.0 (<2.0) mg/dL Ur Leukocyte Esterase Moderate H (Negative) Urine RBC 16 H (0-5) /hpf Urine WBC 43 H (0-5) /hpf Ur Squamous Epith Cells 1 (0-4) /hpf Urine Bacteria Rare H (None) /hpf Urine Mucus Rare H (None) /hpf Influenza Type A (PCR) (Not Detectd) Influenza Type B (PCR) (Not Detectd) RSV (PCR) (Not Detectd) SARS-CoV-2 (PCR) (Not Detectd) Group A Strep (PCR) NOT DETECTED (Not Detectd) 04/19/24 04/19/24 Range/Units 22:46 22:59 WBC (3.8-10.6) k/uL RBC (3.80-5.40) m/uL Hgb (11.4-16.0) gm/dL Hct (34.0-46.0) % MCV (80.0-100.0) fL MCH (25.0-35.0) pg MCHC (31.0-37.0) g/dL RDW (11.5-15.5) % Plt Count (150-450) k/uL MPV Neutrophils % % Lymphocytes % % Monocytes % % Eosinophils % % Basophils % % Neutrophils # (1.3-7.7) k/uL Lymphocytes # (1.0-4.8) k/uL Monocytes # (0-1.0) k/uL Eosinophils # (0-0.7) k/uL Basophils # (0-0.2) k/uL PT 10.3 (10.0-12.5) sec INR 0.9 (<1.2) APTT 24.7 (22.0-30.0) sec Sodium (137-145) mmol/L Potassium (3.5-5.1) mmol/L Chloride (98-107) mmol/L Carbon Dioxide (22-30) mmol/L Anion Gap mmol/L BUN (7-17) mg/dL Creatinine (0.52-1.04) mg/dL Est GFR (CKD-EPI)AfAm (>60 ml/min/1.73 sqM) Est GFR (CKD-EPI)NonAf (>60 ml/min/1.73 sqM) Glucose (74-99) mg/dL Plasma Lactic Acid Abilio (0.7-2.0) mmol/L Calcium (8.4-10.2) mg/dL Total Bilirubin (0.2-1.3) mg/dL AST (14-36) U/L ALT (4-34) U/L Alkaline Phosphatase (38-126) U/L C-Reactive Protein (<1.0) mg/dL Total Protein (6.3-8.2) g/dL Albumin (3.5-5.0) g/dL HCG, Quant mIU/mL Urine Color Urine Appearance (Clear) Urine pH (5.0-8.0) Ur Specific [place] (1.001-1.035) Urine Protein (Negative) Urine Glucose (UA) (Negative) Urine Ketones (Negative) Urine Blood (Negative) Urine Nitrite (Negative) Urine Bilirubin (Negative) Urine Urobilinogen (<2.0) mg/dL Ur Leukocyte Esterase (Negative) Urine RBC (0-5) /hpf Urine WBC (0-5) /hpf Ur Squamous Epith Cells (0-4) /hpf Urine Bacteria (None) /hpf Urine Mucus (None) /hpf Influenza Type A (PCR) Not Detected (Not Detectd) Influenza Type B (PCR) Not Detected (Not Detectd) RSV (PCR) Not Detected (Not Detectd) SARS-CoV-2 (PCR) Not Detected (Not Detectd) Group A Strep (PCR) (Not Detectd) - Radiology Data Radiology results: report reviewed, image reviewed Disposition Clinical Impression: fever, UTI (urinary tract infection) Disposition: HOME SELF-CARE Instructions (If sedation given, give patient instructions): Urinary Tract Infection in Women (ED), Fever in Adults (ED) Additional Instructions: Return to the emergency department with any new, worsening, or concerning symptoms. Take both antibiotics as prescribed for 10 days. Alternate with ibuprofen and Tylenol as needed for fevers and pain relief. Contact your MANAGER ASSURANCE in the morning. Let them know about the fever and that the ultrasound showed a complex fluid collection suggestive of a thrombus. Prescriptions: cefuroxime axetiL [Ceftin] 500 mg PO BID 10 Days #20 tab metroNIDAZOLE [Flagyl] 500 mg PO BID 10 Days #20 tab Ibuprofen [Motrin] 800 mg PO Q8H PRN #30 tab PRN Reason: Fever And/ Or Pain Is patient prescribed a controlled substance at d/c from ED?: No Referrals: Sajan Atkinson MD [Primary Care Provider] - 1-2 days Time of Disposition: 13:29
--- NOTE | 2024-04-19 21:07 | XR ---
EXAMINATION TYPE: XR chest 2V DATE OF EXAM: 04/19/2024 CLINICAL HISTORY: Fever TECHNIQUE: Frontal and lateral views of the chest are obtained. COMPARISON: None FINDINGS: Overlying bra strap. There is no focal air space opacity, pleural effusion, or pneumothora x seen. The cardiac silhouette size is within normal limits. The osseous structures are intact. IMPRESSION: No acute pulmonary infiltrate. [facility], , 04/19/2024 9:05 PM
[2024-04-19 21:32] LABS: Basophils % (A) 0 %; Eosinophils # (A) 0.2 k/uL (0-0.7); Eosinophils % (A) 1 %; HCT 36.2 % (34.0-46.0); HGB 12.2 gm/dL (11.4-16.0); Lymphocytes # (A) 2.3 k/uL (1.0-4.8); Lymphocytes % (A) 14 %; MCH 29.5 pg (25.0-35.0); MCHC 33.6 g/dL (31.0-37.0); MCV 87.7 fL (80.0-100.0); Mean Platelet Volume 7.2; Monocytes # (A) 0.8 k/uL (0-1.0); Monocytes % (A) 5 %; Neutrophils % (A) 78 %; Platelet Count 275 k/uL (150-450); RBC 4.13 m/uL (3.80-5.40); RDW 13.3 % (11.5-15.5); WBC 16.6 k/uL (3.8-10.6)
[2024-04-19] MEDS: KETOROLAC 15 MG/ML 1 ML VIAL IVP STA (21:32)
[2024-04-19] MEDS: SODIUM CHLORIDE 0.9% 1,000 ML IV STA ×2 (21:34→23:01)
[2024-04-19 22:00] LABS: ALT 31 U/L (4-34); AST 28 U/L (14-36); African American GFR (CKD) >90 (>60 ml/min/1.73 sqM); Albumin 3.9 g/dL (3.5-5.0); Alkaline Phosphatase 49 U/L (38-126); Anion Gap 5 mmol/L; Blood Urea Nitrogen 10 mg/dL (7-17); Calcium 8.8 mg/dL (8.4-10.2); Carbon Dioxide 23 mmol/L (22-30); Chloride 107 mmol/L (98-107); Glucose 109 mg/dL (74-99); Non-African American GFR(CKD) >90 (>60 ml/min/1.73 sqM); Potassium 3.4 mmol/L (3.5-5.1); Sodium 135 mmol/L (137-145); Total Bilirubin 0.7 mg/dL (0.2-1.3); Total Protein 6.8 g/dL (6.3-8.2)
[2024-04-19 22:13] LABS: C Reactive Protein 26.7 mg/dL (<1.0)
[2024-04-19] MEDS: POTASSIUM CHLORIDE ER 20 MEQ TAB.ER PO STA (22:42)
[2024-04-19 22:53] LABS: Appearance,Urine Clear (Clear); Bacteria,Urine Rare /hpf; Bilirubin,Urine Negative (Negative); Blood,Urine Trace (Negative); Color,Urine Yellow; Glucose,Urine (UA) Negative (Negative); Ketones,Urine Negative (Negative); Leukocyte Esterase,Urine Moderate (Negative); Mucus,Urine Rare /hpf; Nitrite,Urine Negative (Negative); Protein,Urine 1+ (Negative); RBC,Urine 16 /hpf (0-5); Specific Gravity,Urine 1.023 (1.001-1.035); Squamous Epithelial Cell,Urine 1 /hpf (0-4); Urobilinogen,Urine <2.0 mg/dL (<2.0); WBC,Urine 43 /hpf (0-5)
[2024-04-19 23:24] LABS: INR 0.9 (<1.2); Partial Thromboplastin Time 24.7 sec (22.0-30.0); Prothrombin Time 10.3 sec (10.0-12.5)
[2024-04-20 00:46] VITALS: TEMP 97.7
--- NOTE | 2024-04-20 01:07 | US ---
EXAM: US Pelvis Transabdominal and Transvaginal, Complete and US Duplex Arterial/Venous of the Pelvis, Complete CLINICAL HISTORY: US Reason: Fever, bleeding, 3 weeks ago TECHNIQUE: Real-time complete transabdominal and transvaginal pelvic ultrasound with image documentation. Transvaginal imaging was used for better evaluation of the endometrium and adnexa. Real-time duplex ultrasound scan of the arterial and venous flow of the pelvis with color Doppler flow and spectral waveform analysis. COMPARISON: January 25, 2023 FINDINGS: Uterus/cervix: The uterus measures 10.5 x 6.4 x 0.2 cm, 286 mL and is retroverted. The myometrium is unremarkable. The upper endometrial stripe is normal measuring 8 mm. Small amount of fluid in the endometrial cavity. Right ovary: The right ovary measures 2.4 x 3 x 1.8 cm, 7.1 mL with a normal multi-follicular appearance and normal Doppler blood flow. Left ovary: The left ovary measures 2.4 x 2.2 x 1.2 cm with normal Doppler blood flow. Free fluid: No free fluid. Bladder: Unremarkable as visualized. Wall is normal thickness for degree of distention. Vasculature: There is a 1.9 x 1.8 x 2.2 cm complex fluid collection in the lower uterine segment and cervix. Probable thrombus. No abnormal Doppler blood flow is seen. IMPRESSION: There is a 1.9 x 1.8 x 2.2 cm complex fluid collection in the lower uterine segment and cervix. Probable thrombus. No abnormal Doppler blood flow is seen.
[2024-04-20] MEDS: ACET/COD 300 MG/30 MG STARTER PACK 6 TAB BTL PO STA (01:50)
[2024-04-20] MEDS: ONDANSETRON 4 MG ODT STARTER PACK 2 TAB BTL PO STA (01:50)
[2024-04-20] MEDS: metroNIDAZOLE 500 MG TAB PO STA (01:51)
[2024-04-20] MEDS: KETOROLAC 15 MG/ML 1 ML VIAL IVP STA (01:51)
[2024-04-20] MEDS: cefTRIAXone IN SWFI 1,000 MG/10 ML SYRINGE IVP ONE ×2 (01:57→01:59)
[2024-04-20 02:04] VITALS: BP 121/73; PULSE 77; RESP 16
== END 2024-04-20 02:04 | disposition home or self-care (01) ==
LOC: EC 20:06
DX: O86.4 Pyrexia of unknown origin following delivery (principal); N39.0 Urinary tract infection, site not specified; O24.414 Gestational diabetes mellitus in pregnancy, insulin controlled; F17.200 Nicotine dependence, unspecified, uncomplicated; Z11.52 Encounter for screening for COVID-19
CPT/HCPCS: 36415; 87651; 80053; 83605; 85025; 85610; 85730; 86140; 81001; 84702; 87086; 87636; 71046; 93975; 76830; 99285; 96374; 96361; 96375; J0696; J1885 ×2; S0119

== ENCOUNTER → 2024-08-23 | Outpatient (CLI) | payer OTHER ==
--- NOTE | 2024-08-23 14:17 | CA ---
Transthoracic Echo Report Name: Talya Steiner Age: 34 Gender: F : 1990 Exam Date: 08/23/2024 11:21 Exam Location: [facility] Ht (in): 69 Wt (lb): 280 Ordering Physician: Sajan Atkinson MD Attending/Referring Phys: Altagracia Amezquita [facility] Emergency Medical Technician Basic Ciera Warner RDCS Procedure CPT: Indications: R06.02 SOB Cardiac Hx: Technical Quality: Fair Contrast 1: Total Dose (mL): Contrast 2: Total Dose (mL): MEASUREMENTS (Male / Female) Normal Values 2D ECHO LV Diastolic Diameter PLAX 5.6 cm 4.2 - 5.9 / 3.9 - 5.3 cm LV Systolic Diameter PLAX 4.5 cm IVS Diastolic Thickness 1.1 cm 0.6 - 1.0 / 0.6 - 0.9 cm LVPW Diastolic Thickness 0.9 cm 0.6 - 1.0 / 0.6 - 0.9 cm LV Relative Wall Thickness 0.4 RV Internal Dim ED PLAX 3.4 cm LVOT Diameter 2.4 cm LV Diastolic Volume MOD BP 157.7 cm??? 67 - 155 / 56 - 104 cm??? LV Systolic Volume MOD BP 66.0 cm??? 22 - 58 / 19 - 49 cm??? LV Ejection Fraction MOD BP 58.2 % >= 55 % LV Cardiac Index MOD BP 2235.0 cm???/min???m??? LV Diastolic Volume MOD 4C 162.2 cm??? LV Systolic Volume MOD 4C 61.6 cm??? LV Ejection Fraction MOD 4C 62.0 % LV Cardiac Index MOD 4C 2449.6 cm???/min???m??? LV Diastolic Length 4C 8.9 cm LV Systolic Length 4C 7.5 cm LV Diastolic Volume MOD 2C 148.2 cm??? LV Systolic Volume MOD 2C 71.4 cm??? LV Ejection Fraction MOD 2C 51.8 % LV Cardiac Index MOD 2C 1868.9 cm???/min???m??? LV Diastolic Length 2C 9.3 cm LV Systolic Length 2C 7.6 cm DOPPLER AV Peak Velocity 162.6 cm/s AV Peak Gradient 10.6 mmHg AV Mean Velocity 116.3 cm/s AV Mean Gradient 6.1 mmHg AV Velocity Time Integral 33.4 cm Mitral E Point Velocity 90.1 cm/s Mitral A Point Velocity 80.9 cm/s Mitral E to A Ratio 1.1 MV Deceleration Time 235.5 ms MV E' Velocity 9.0 cm/s Mitral E to MV E' Ratio 10.0 TR Peak Velocity 224.2 cm/s TR Peak Gradient 20.1 mmHg Right Ventricular Systolic Press 30.1 mmHg PV Peak Velocity 115.4 cm/s PV Peak Gradient 5.3 mmHg FINDINGS Left Ventricle Left ventricular ejection fraction is estimated at 60-65 %. Mildly increased septal wall thickness. Mildly increased left ventricular diastolic diameter. Severely increased left ventricular diastolic volume. Moderately increased left ventricular systolic volume. Right Ventricle Mild right ventricular dilatation. Right ventricular systolic pressure within normal limits. Right Atrium Normal right atrial size. No right atrial thrombus or mass seen. Left Atrium Normal left atrial size. No left atrial thrombus or mass present. Mitral Valve Structurally normal mitral valve. No mitral stenosis, regurgitation or prolapse. Aortic Valve Trileaflet aortic valve. No aortic valve stenosis or regurgitation. Tricuspid Valve Structurally normal tricuspid valve. Trace to mild tricuspid regurgitation. Pulmonic Valve Structurally normal pulmonic valve. No pulmonic regurgitation. Pericardium No pericardial or pleural effusion. Aorta Normal size aortic root and proximal ascending aorta. CONCLUSIONS Normal biventricular systolic function No significant valvular abnormalities No pericardial effusion Previewed by: Dr. Dieter Reis MD (Electronically Signed) Final Date: 23 August 2024 14:16
== END | disposition home or self-care (01) ==
LOC: RADECHMAIN 11:09
PROVIDERS: ATTEND Internal Medicine Geriatric Medicine
DX: R06.02 Shortness of breath (principal)
CPT/HCPCS: 93306